=== PATIENT | male | born 1955 | race Caucasian/White ===

== ENCOUNTER 2024-03-03 11:21 | Inpatient (IN) | payer MEDICARE, OTHER ==
[~2024-03-03] VITALS: Ht 182.9 cm; Wt 93.0 kg
[2024-03-03] MEDS ORDERED: CHOL2000 PO (11:35)
[2024-03-03] MEDS ORDERED: TAMS-3 PO (11:35)
[2024-03-03] MEDS ORDERED: AMLO10TA59 PO (11:35)
[2024-03-03] MEDS ORDERED: DIVA250T4 PO (11:35)
[2024-03-03] MEDS ORDERED: MELA5TAB PO (11:35)
[2024-03-03] MEDS ORDERED: OXYB10TA4 PO (11:35)
[2024-03-03] MEDS ORDERED: ROSU10TA2 PO (11:35)
[2024-03-03] MEDS ORDERED: POLY17PO4 PO (11:35)
[2024-03-03] MEDS ORDERED: DOCU-141 PO (11:35)
[2024-03-03] MEDS ORDERED: BENA10TA74 PO (11:35)
[2024-03-03] MEDS ORDERED: ASPI81TA31 PO (11:35)
[2024-03-03] MEDS ORDERED: FINA5TAB3 PO (11:36)
[2024-03-03] MEDS ORDERED: MULT-594 PO (11:36)
[2024-03-03 11:41] LABS: BASOPHILS # (AUTO) 0.1 K/UL (0.0-0.2); BASOPHILS % (AUTO) 0.3 % (0.0-2.0); EOSINOPHILS # (AUTO) 0.1 K/uL (0.0-0.7); EOSINOPHILS % (AUTO) 0.3 % (0.0-7.0); HEMATOCRIT 48.3 % (36.7-47.1); HEMOGLOBIN 16.1 g/dL (12.5-16.3); LYMPHOCYTES % (AUTO) 4.4 % (20.5-51.5); MEAN CORPUSCULAR HEMOGLOBIN 29.2 uug (23.8-33.4); MEAN CORPUSCULAR HGB CONC 33 g/dL (32.5-36.3); MEAN CORPUSCULAR VOLUME 87.6 fL (73.0-96.2); MONOCYTES # (AUTO) 1.8 K/uL (0.1-1.30); MONOCYTES % (AUTO) 8.2 % (0.0-11.0); NEUTROPHILS # (AUTO) 19.1 K/uL (1.8-8.9); NEUTROPHILS % (AUTO) 86.8 % (38.5-71.5); PLATELET COUNT (AUTO) 271 K/uL (152-348); RED BLOOD CELL COUNT(AUTO) 5.51 MIL/uL (4.06-5.63); RED CELL DISTRIBUTION WIDTH 13.9 % (12.1-16.2)
[2024-03-03 11:48] LABS: DIFFERENTIAL COMMENT 1
[2024-03-03] MEDS: IV NORMAL SALINE 500 ML BAG IV ONE (11:52)
[2024-03-03 12:00] LABS: ALBUMIN 2.8 g/dL (3.4-5.0); BILIRUBIN,DIRECT 0.2 mg/dL (0.0-0.2); BILIRUBIN,TOTAL 0.7 mg/dL (0.2-1.0); CALCIUM 8.4 mg/dL (8.5-10.1); CREATININE 1.7 mg/dL (0.6-1.3); POTASSIUM 3.9 mmol/L (3.5-5.1); TOTAL PROTEIN, SERUM 6.3 g/dL (6.4-8.2)
[2024-03-03] MEDS ORDERED: ALBUTEROL SULFATE 2.5 MG/3 ML NEBU ONE (12:14)
[2024-03-03] MEDS ORDERED: IPRATROPIUM BROMIDE 0.5 MG/2.5 ML NEBU ONE (12:14)
[2024-03-03] MEDS: ALBUTEROL SULFATE 2.5 MG/3 ML NEBU NEB ONE (12:24)
[2024-03-03] MEDS: IPRATROPIUM BROMIDE 0.5 MG/2.5 ML NEBU NEB ONE (12:24)
[2024-03-03] MEDS ORDERED: PIPERACILLIN/TAZOBACTAM/D5W 50 ML IV ONE (13:14)
[2024-03-03] MEDS: PIPERACILLIN SODIUM/TAZOBACTAM 3.375 G in IV DEXTROSE 5% 50 ML IV ONE (13:16)
[2024-03-03 13:35] LABS: *BILIRUBIN,URIN NEGATIVE (NEGATIVE); *BLOOD, URINE NEGATIVE (NEGATIVE); *CLARITY,URINE CLEAR (CLEAR); *COLOR,URINE YELLOW (YELLOW); *KETONES,URINE NEGATIVE (NEGATIVE); *PROTEIN,URINE NEGATIVE (NEGATIVE); *UROBILINOGEN,URINE 0.2 E.U./dl (NORMAL); LEUKOCYTE ESTERASE ,URINE NEGATIVE (NEGATIVE); NITRITE, URINE NEGATIVE (NEGATIVE); PH,URINE 6.5 (5.0-8.0); UGLUCOSE NEGATIVE (NEGATIVE)
[2024-03-03 14:55] VITALS: BP 103/69; TEMP 97.2; O2SAT 90
[2024-03-03] MEDS ORDERED: ONDANSETRON 4 MG/2 ML VIAL IV PRN (16:45)
[2024-03-03] MEDS ORDERED: ACETAMINOPHEN 325 MG TABLET PO PRN (16:45)
[2024-03-03] MEDS ORDERED: MAGNESIUM HYDROXIDE 30 ML LIQUID UDC PO PRN (16:45)
[2024-03-03] MEDS: ENOXAPARIN SODIUM 40 MG/0.4 ML DISP.SYRIN SQ SCH (17:11)
[2024-03-03] MEDS: DIVALPROEX 250 MG TABLET.DR PO SCH (17:11)
[2024-03-03] MEDS: DOCUSATE SODIUM 100 MG CAPSULE PO SCH (17:11)
[2024-03-03] MEDS: FUROSEMIDE 40 MG/4 ML VIAL IV ONE (17:12)
[2024-03-03] MEDS: REMEDY ESSENTIAL ZINC PASTE 113 GM TP PRN (17:13)
[2024-03-03] MEDS: SUCRALFATE 1 G TABLET PO SCH (17:13)
[2024-03-03] MEDS: ATORVASTATIN 40 MG TABLET PO SCH (20:24)
[2024-03-03] MEDS: TAMSULOSIN HCL 0.4 MG CAP.SR.24H PO SCH (20:24)
[2024-03-03 20:30] VITALS: BP 102/54; TEMP 98.2; O2SAT 95
[2024-03-03] MEDS: PIPERACILLIN SODIUM/TAZOBACTAM 3.375 G in IV DEXTROSE 5% 100 ML IV SCH (21:54)
[2024-03-03] MEDS ORDERED: PIPERACILLIN SODIUM/TAZOBACTAM 3.375 G in IV DEXTROSE 5% 50 ML IV SCH (22:00)
[2024-03-04] VITALS (11 sets, daily range): BP systolic 106–123; BP diastolic 44–82; TEMP 97.5–98.3; O2SAT 93–99
[2024-03-04] MEDS: PANTOPRAZOLE SODIUM 40 MG TABLET.DR PO SCH (06:16)
[2024-03-04 07:13] LABS: BASOPHILS # (AUTO) 0.1 K/UL (0.0-0.2); BASOPHILS % (AUTO) 0.3 % (0.0-2.0); EOSINOPHILS # (AUTO) 0.2 K/uL (0.0-0.7); EOSINOPHILS % (AUTO) 0.9 % (0.0-7.0); HEMATOCRIT 43.3 % (36.7-47.1); HEMOGLOBIN 14.8 g/dL (12.5-16.3); LYMPHOCYTES # (AUTO) 1.5 K/uL (0.8-4.8); LYMPHOCYTES % (AUTO) 7.8 % (20.5-51.5); MEAN CORPUSCULAR HEMOGLOBIN 29.9 uug (23.8-33.4); MEAN CORPUSCULAR HGB CONC 34 g/dL (32.5-36.3); MEAN CORPUSCULAR VOLUME 87.1 fL (73.0-96.2); MONOCYTES # (AUTO) 1.6 K/uL (0.1-1.30); MONOCYTES % (AUTO) 8.7 % (0.0-11.0); NEUTROPHILS # (AUTO) 15.5 K/uL (1.8-8.9); NEUTROPHILS % (AUTO) 82.3 % (38.5-71.5); PLATELET COUNT (AUTO) 203 K/uL (152-348); RED BLOOD CELL COUNT(AUTO) 4.97 MIL/uL (4.06-5.63); RED CELL DISTRIBUTION WIDTH 14.2 % (12.1-16.2); WHITE BLOOD COUNT (AUTO) 18.9 K/uL (3.6-10.2)
[2024-03-04 07:30] LABS: CALCIUM 8.3 mg/dL (8.5-10.1); CREATININE 1.4 mg/dL (0.6-1.3); MAGNESIUM 2.3 mg/dL (1.8-2.4); PHOSPHOROUS 3.7 mg/dL (2.5-4.9); POTASSIUM 3.9 mmol/L (3.5-5.1)
[2024-03-04 07:53] LABS: DIFFERENTIAL COMMENT 1
[2024-03-04] MEDS: AMLODIPINE 10 MG TABLET PO SCH (08:09)
[2024-03-04] MEDS: BENAZEPRIL HCL 10 MG TABLET PO SCH (08:09)
[2024-03-04] MEDS: FINASTERIDE 5 MG TABLET PO SCH (08:09)
[2024-03-04] MEDS: ASPIRIN 81 MG TAB.CHEW PO SCH (08:09)
[2024-03-04] MEDS: OXYBUTYNIN XL 5 MG TABSR PO SCH (08:09)
[2024-03-04] MEDS: MIRALAX 17 GM POWD.PACK PO SCH (08:10)
[2024-03-04] MEDS: IPRATROPIUM BROMIDE 0.5 MG/2.5 ML NEBU NEB PRN (09:29)
[2024-03-04] MEDS: ALBUTEROL SULFATE 2.5 MG/3 ML NEBU NEB PRN (09:30)
[2024-03-04] MEDS: MUPIROCIN 2% OINT 22 GM TUBE NS SCH (18:36)
[2024-03-04] MEDS ORDERED: TAMSULOSIN HCL 0.4 MG CAP.SR.24H PO SCH (21:00)
[2024-03-05 00:37] VITALS: BP 113/68; TEMP 98.3; O2SAT 95
[2024-03-05 06:37] VITALS: BP 114/59; TEMP 98.6; O2SAT 94
[2024-03-05 08:00] VITALS: BP 146/93; TEMP 97.7; O2SAT 93
[2024-03-05 11:53] VITALS: BP 128/80; TEMP 97.8; O2SAT 98
[2024-03-05 12:07] LABS: BASOPHILS # (AUTO) 0.2 K/UL (0.0-0.2); EOSINOPHILS # (AUTO) 0.2 K/uL (0.0-0.7); EOSINOPHILS % (AUTO) 1.9 % (0.0-7.0); HEMATOCRIT 40.1 % (36.7-47.1); HEMOGLOBIN 13.1 g/dL (12.5-16.3); LYMPHOCYTES # (AUTO) 0.8 K/uL (0.8-4.8); LYMPHOCYTES % (AUTO) 7.2 % (20.5-51.5); MEAN CORPUSCULAR HEMOGLOBIN 28.8 uug (23.8-33.4); MEAN CORPUSCULAR HGB CONC 33 g/dL (32.5-36.3); MEAN CORPUSCULAR VOLUME 88.3 fL (73.0-96.2); MONOCYTES # (AUTO) 0.8 K/uL (0.1-1.30); MONOCYTES % (AUTO) 7.2 % (0.0-11.0); NEUTROPHILS # (AUTO) 9.6 K/uL (1.8-8.9); NEUTROPHILS % (AUTO) 81.7 % (38.5-71.5); PLATELET COUNT (AUTO) 218 K/uL (152-348); RED BLOOD CELL COUNT(AUTO) 4.54 MIL/uL (4.06-5.63); RED CELL DISTRIBUTION WIDTH 14.3 % (12.1-16.2); WHITE BLOOD COUNT (AUTO) 11.8 K/uL (3.6-10.2)
[2024-03-05 12:25] LABS: ALBUMIN 2.1 g/dL (3.4-5.0); BILIRUBIN,TOTAL 0.3 mg/dL (0.2-1.0); CALCIUM 7.7 mg/dL (8.5-10.1); MAGNESIUM 2.3 mg/dL (1.8-2.4); PHOSPHOROUS 2.3 mg/dL (2.5-4.9); POTASSIUM 3.8 mmol/L (3.5-5.1); TOTAL PROTEIN, SERUM 5.1 g/dL (6.4-8.2)
[2024-03-05 12:26] LABS: DIFFERENTIAL COMMENT 1
[2024-03-05 15:20] LABS: *BILIRUBIN,URIN NEGATIVE (NEGATIVE); *BLOOD, URINE 3+ (NEGATIVE); *CLARITY,URINE SLIGHTLY CLOUDY (CLEAR); *COLOR,URINE YELLOW (YELLOW); *KETONES,URINE NEGATIVE (NEGATIVE); *PROTEIN,URINE 2+ (NEGATIVE); LEUKOCYTE ESTERASE ,URINE TRACE (NEGATIVE); NITRITE, URINE NEGATIVE (NEGATIVE); PH,URINE 8.5 (5.0-8.0); UGLUCOSE NEGATIVE (NEGATIVE)
[2024-03-05 15:28] LABS: *CREATININE,URINE 50.8 mg/dL (30-125); *URINE TOTAL PROTEIN RANDOM 46.1 mg/dL (<150/24HR)
[2024-03-05 15:36] LABS: BACTERIA,URINE FEW /HPF (NONE SEEN); RBC,URINE 80-100 /HPF (0-3); WBC,URINE 0-3 /HPF (0-3)
[2024-03-05 15:37] LABS: SQUAMOUS EPITHELIAL CELL,UR FEW /HPF (NONE SEEN)
[2024-03-05 15:50] VITALS: BP 117/72; TEMP 97.4; O2SAT 95
[2024-03-05 16:02] LABS: EOSINOPHILS % (MANUAL) 1 % (0-8); LYMPHOCYTES % (MANUAL) 8 % (20-40); MONOCYTES % (MANUAL) 4 % (2-10); NEUTROPHILS % (MANUAL) 87 % (42-75); PLATELET ESTIMATE ADEQUATE
[2024-03-05 16:05] LABS: ANISOCYTOSIS 1+
[2024-03-05] MEDS: NEUTRA PHOS PACKET PO ONE (17:07)
[2024-03-05 22:01] VITALS: BP 132/78; TEMP 99.3; O2SAT 94
[2024-03-06 06:44] VITALS: BP 144/82; TEMP 98.5; O2SAT 93
[2024-03-06 07:31] LABS: BASOPHILS # (AUTO) 0.1 K/UL (0.0-0.2); BASOPHILS % (AUTO) 0.9 % (0.0-2.0); EOSINOPHILS # (AUTO) 0.6 K/uL (0.0-0.7); EOSINOPHILS % (AUTO) 6.4 % (0.0-7.0); HEMATOCRIT 41.4 % (36.7-47.1); LYMPHOCYTES # (AUTO) 1.4 K/uL (0.8-4.8); LYMPHOCYTES % (AUTO) 16.3 % (20.5-51.5); MEAN CORPUSCULAR HEMOGLOBIN 29.8 uug (23.8-33.4); MEAN CORPUSCULAR HGB CONC 34 g/dL (32.5-36.3); MEAN CORPUSCULAR VOLUME 88.2 fL (73.0-96.2); MONOCYTES # (AUTO) 0.8 K/uL (0.1-1.30); MONOCYTES % (AUTO) 8.7 % (0.0-11.0); NEUTROPHILS % (AUTO) 67.7 % (38.5-71.5); PLATELET COUNT (AUTO) 208 K/uL (152-348); RED CELL DISTRIBUTION WIDTH 13.9 % (12.1-16.2); WHITE BLOOD COUNT (AUTO) 8.8 K/uL (3.6-10.2)
[2024-03-06 07:36] LABS: DIFFERENTIAL COMMENT 1
[2024-03-06 07:44] LABS: ALBUMIN 2.4 g/dL (3.4-5.0); BILIRUBIN,TOTAL 0.5 mg/dL (0.2-1.0); CALCIUM 8.3 mg/dL (8.5-10.1); CREATININE 0.8 mg/dL (0.6-1.3); MAGNESIUM 2.4 mg/dL (1.8-2.4); PHOSPHOROUS 2.3 mg/dL (2.5-4.9); POTASSIUM 3.9 mmol/L (3.5-5.1); TOTAL PROTEIN, SERUM 5.7 g/dL (6.4-8.2)
[2024-03-06 07:50] VITALS: O2SAT 93
[2024-03-06] MEDS ORDERED: MUPI22OI2 NS (10:20)
[2024-03-06] MEDS ORDERED: CEPH500T PO (10:20)
[2024-03-06 12:00] VITALS: BP 143/62; TEMP 98.3; O2SAT 93
[2024-03-07 17:06] LABS: PTH, INTACT 14 pg/mL (15-65)
[2024-03-09 14:06] LABS: A/G RATIO 0.9 (0.7-1.7); ALBUMIN 2.5 g/dL (2.9-4.4); ALPHA-1-GLOBULIN 0.3 g/dL (0.0-0.4); ALPHA-2-GLOBULIN 0.9 g/dL (0.4-1.0); BETA GLOBULIN 0.8 g/dL (0.7-1.3); GAMMA GLOBULIN 0.9 g/dL (0.4-1.8); GLOBULIN, TOTAL 2.8 g/dL (2.2-3.9); M-SPIKE Not Observed g/dL (Not Observed)
== END 2024-03-06 14:30 | DRG 725 ==
LOC: ER 11:21 → TELE3 14:25 → MEDSURG3 03-05 09:16
PROVIDERS: ADMIT Nurse Practitioner Acute Care; ATTEND Nurse Practitioner Acute Care
PROC: 0T9B70Z Drainage of Bladder with Drainage Device, Via Natural or Artificial Opening (ICD-10-PCS; principal; 2024-03-03)
DX: N40.1 Benign prostatic hyperplasia with lower urinary tract symptoms (principal); I50.33 Acute on chronic diastolic (congestive) heart failure; N13.8 Other obstructive and reflux uropathy; N17.8 Other acute kidney failure; E87.1 Hypo-osmolality and hyponatremia; R33.8 Other retention of urine; K21.00 Gastro-esophageal reflux disease with esophagitis, without bleeding; E78.5 Hyperlipidemia, unspecified; D72.829 Elevated white blood cell count, unspecified; F31.9 Bipolar disorder, unspecified; F20.9 Schizophrenia, unspecified; J20.9 Acute bronchitis, unspecified; Z86.73 Personal history of transient ischemic attack (TIA), and cerebral infarction without residual deficits; I70.8 Atherosclerosis of other arteries; I11.0 Hypertensive heart disease with heart failure
CPT/HCPCS: 36415; 70030-TC; 71045; 83605; 83690; 83735; 83970; 84100; 84155; 84165; 84300; 84484; 85025; 85730; 87040; 93005; 94664; 94760; A4606; A4663; A6209; A6213; G0378; J1650; J1940; J2543; J3490; J3590; J7040